=== PATIENT | male | born 1950 | race Caucasian/White ===

== ENCOUNTER → 2016-05-01 | Day surgery (SDC) | payer MEDICARE, OTHER ==
[~2016-05-01] VITALS: Ht 165.1 cm; Wt 76.2 kg
[~2016-05-01] MED LIST: 0.9% Sodium Chloride 1,000 ML IV SCH; QUIN20TA PO; Sodium Chloride LOK Flush 10 mL Syringe IV PRN; ZYL100 PO; fentaNYL-PF 50 mCg/mL 2 mL Inj IVPUSH PRN
[2016-05-01 08:40] VITALS: BP 139/71; PULSE 53; RESP 12; O2SAT 98
[2016-05-01 09:40] VITALS: BP 125/75; PULSE 54; RESP 16; O2SAT 96
[2016-05-01 09:50] VITALS: BP 97/65; PULSE 52; RESP 16; O2SAT 94
[2016-05-01 09:58] VITALS: BP 111/72; PULSE 57; RESP 16; O2SAT 99
--- NOTE | 2016-05-01 14:20 | ENDO ---
[address] [id number] ENDOSCOPY PROCEDURE PATIENT: CHRISTINE NESS : 1950 MR#: [id number] ADMIT: 05/01/2016 JOB ID: [id number] TYPE OF OPERATION: Colonoscopy. PREOPERATIVE DIAGNOSIS(ES): Colorectal cancer screening. POSTOPERATIVE DIAGNOSIS(ES): Diverticulosis, moderate in the sigmoid and ascending colon. ANESTHESIA: Fentanyl 50 mcg, Versed 2 mg IV administered. COMPLICATIONS: None. BLOOD LOSS: Minimal. DESCRIPTION OF PROCEDURE: After risks and benefits were explained to the patient, informed consent was obtained. After anesthesia was administered, the colonoscope was inserted from the rectum to the cecum and the mucosa carefully examined. Prep of the patient was excellent. After the procedure was done, the scope was withdrawn and the procedure terminated. FINDINGS: Upon inspection of the anus, no masses, hemorrhoids, ulcers, or fissures that were seen. Throughout the entire examination there were no polyps, masses, or lesions. There was moderate sigmoid and transverse colon diverticulosis. IMPRESSION: Diverticulosis sigmoid and transverse colon. Retroflexion was normal. RECOMMENDATIONS: 1. High-fiber diet. 2. Repeat colonoscopy in 10 years for colorectal cancer screening.
== END | disposition home or self-care (01) ==
LOC: END 00:11
PROVIDERS: ATTEND Internal Medicine Gastroenterology
DX: Z12.11 Encounter for screening for malignant neoplasm of colon (principal); K57.30 Diverticulosis of large intestine without perforation or abscess without bleeding; I10 Essential (primary) hypertension; E78.00 Pure hypercholesterolemia, unspecified; R00.1 Bradycardia, unspecified
CPT/HCPCS: G0121; G0500; J2250; J3010; J7030